=== PATIENT | male | born 2000 | race Caucasian/White ===

== ENCOUNTER 2024-07-31 09:53 | Emergency (ER) | payer SELFPAY ==
[2024-07-31] MEDS ORDERED: Bupivacaine PF 0.5% 30 ML VIAL ONE (10:04)
[2024-07-31] MEDS ORDERED: Cephalexin 500 MG CAP ONE (10:04)
[2024-07-31] MEDS ORDERED: Lidocaine 1% PF 5 ML VIAL ONE (10:04)
== END 2024-07-31 12:05 | disposition short-term general hospital (02) ==
LOC: MADERS 09:53 → EDBD 09:53 → MADERS 12:05
DX: S68.623A Partial traumatic transphalangeal amputation of left middle finger, initial encounter (principal); F17.210 Nicotine dependence, cigarettes, uncomplicated; F17.220 Nicotine dependence, chewing tobacco, uncomplicated; W31.89XA Contact with other specified machinery, initial encounter
CPT/HCPCS: 99284; J0665